=== PATIENT | male | born 1980 | race Two or more races ===

== ENCOUNTER 2020-05-16 11:43 | Emergency (ER) | payer MEDICAID ==
[~2020-05-16] VITALS: Ht 172.7 cm; Wt 65.0 kg
--- NOTE | 2020-05-16 12:26 | NUR ---
PT TO RM 2 FROM RM 38. BELONGINGS PLACED IN LOCKER PER AUNG STRONG. PT IN SECURE RM, SITTER IN VIEW OF PT. SW IN TO [facility] PT AT THIS TIME, UNABLE TO ASSESS D/T PT MAKING NONSENSICAL STATEMENTS AND FLIGHT OF IDEAS, THIS RN UNABLE TO ASSESS SI/HI D/T THIS. THAI HOLLIDAY CALLED TO [facility] PER ANNETTA. PT WITH NL
[2020-05-16 12:28] VITALS: BP 128/87
[2020-05-16 12:58] LABS: BASOPHILS % (AUTO) 0 % (0-1); EOSINOPHILS % (AUTO) 1 % (1-7); LYMPHOCYTES % (AUTO) 18 % (22-44); MEAN CORPUSCULAR HEMOGLOBIN 30.5 pg (27.5-34.5); MEAN CORPUSCULAR HGB CONC 34.2 g/dL (33.2-36.2); MEAN PLATELET VOLUME 7.8 fL (7.4-10.4); MONOCYTES % (AUTO) 6 % (2-9); NEUTROPHILS % (AUTO) 75 % (42-75); PLATELET COUNT 153 x10^3/uL (130-400); RED BLOOD COUNT 4.63 x10^6/uL (4.38-5.82); RED CELL DISTRIBUTION WIDTH 13.3 % (9.4-14.8)
[2020-05-16] MEDS ORDERED: LORazepam 2 MG/ML, 1ML ONE (12:59)
[2020-05-16 13:00] LABS: MD NO
[2020-05-16] MEDS ORDERED: PALIPERIDONE 6 MG TAB.ER.24 PO ONE (13:00)
[2020-05-16] MEDS ORDERED: LORazepam 2 MG/ML, 1ML IM PRN ×2 (13:00→13:30)
[2020-05-16] MEDS ORDERED: PALIPERIDONE PALMITATE 234 MG/1.5 ML IM ONE (13:00)
--- NOTE | 2020-05-16 13:04 | NUR ---
PT BECOMING AGITATED, RUNNING OUT OF HALLS, HEADED TO REGISTRATION DESK, "ILL WAIT HERE TO GET DISCHARGED" UNABLE TO ASSIST PT BACK TO RM, SECURITY CALLED, PT NOW WALKS BACK TO , PT PASING IN RM, PRN MEDICATION ORDER OBTAINED. PT MEDICATED PER AUG.
[2020-05-16 13:22] LABS: ALANINE AMINOTRANSFERASE 45 U/L (12-78); ALKALINE PHOSPHATASE 60 U/L (45-117); ANION GAP 5 mmol/L (5-15); BILIRUBIN,TOTAL 0.5 mg/dL (0.2-1.0); CALCIUM 8.2 mg/dL (8.5-10.1); CHLORIDE 104 mmol/L (98-107); CREATININE 0.85 mg/dL (0.7-1.3)
--- NOTE | 2020-05-16 13:27 | NUR ---
PHARMACY CALLED TO [facility], WILL SCALE TESTER SHORTLY. FLEXOGRAPHIC PRESS PLATE SETTER MADE AWARE OF PT AGGRESSION/BEHAVIORS. PT POSTURING TO STAFF, GRIPPING FISTS, GLARING.
[2020-05-16] MEDS ORDERED: PLEASE ENTER ALLERGIES MC SCH (13:30)
--- NOTE | 2020-05-16 14:37 | NUR ---
TASK RN NOTE: PT SITTING UP IN BED TALKING TO HIMSELF. NAD OR WOB NOTED AT THIS TIME. PT RECENTLY MEDICATED BY PRIMARY RN. SITTER OUTSIDE OF ROOM FOR DIRECT OBSERVATION AND Q15 MIN SAFETY CHECKS.
[2020-05-16 15:23] LABS: AMPHETAMINE SCREEN, URINE Negative (Negative); BARBITURATE SCREEN, URINE Negative (Negative); BENZODIAZEPINE SCREEN, URINE Negative (Negative); CANNABINOID SCREEN, URINE Negative (Negative); COCAINE SCREEN, URINE Negative (Negative); METHADONE SCREEN, URINE Negative (Negative); OPIATE SCREEN, URINE Negative (Negative)
--- NOTE | 2020-05-16 15:49 | NUR ---
PT FREQUENTLY GETTING OUT OF BED MESSING WITH GARAGE DOOR IN RM, REQUIRING FREQUENT REDIRECTION/INTERVENTIONS. SITTER REMAINS IN PLACE
--- NOTE | 2020-05-16 16:50 | NUR ---
COVID SWAB COMPLETED, PER DEBURRING AND TOOLING MACHINE OPERATOR PT TO TRANSFER TO [facility] ONCE RESULTED
--- NOTE | 2020-05-16 17:42 | NUR ---
REPORT TO RECIEVING RN. AWAITING TRANSPORT
[2020-05-17] MEDS ORDERED: OXCA300T3 PO (10:26)
[2020-05-17] MEDS ORDERED: PALI3TAB2 PO (10:26)
[2020-05-17] MEDS ORDERED: CLON-364 PO (10:26)
== END 2020-05-16 17:56 | disposition other institution (70) ==
LOC: ED 17:34
DX: F15.159 Other stimulant abuse with stimulant-induced psychotic disorder, unspecified (principal); Z20.828 Contact with and (suspected) exposure to other viral communicable diseases; F29 Unspecified psychosis not due to a substance or known physiological condition; F20.9 Schizophrenia, unspecified
CPT/HCPCS: 36415; 80053; 80307; 85025; 87635; 96372; 99284; J2060; J2426

== ENCOUNTER 2020-05-16 17:25 | Inpatient (IN) | payer MEDICAID ==
[~2020-05-16] VITALS: Ht 198.1 cm; Wt 77.0 kg
[2020-05-16] MEDS ORDERED: BISACODYL 10 MG SUPP PR PRN (17:30)
[2020-05-16] MEDS ORDERED: ONDANSETRON ODT 4 MG PO PRN (17:30)
[2020-05-16] MEDS ORDERED: DOCUSATE 100 MG CAPSULE PO PRN (17:30)
[2020-05-16] MEDS ORDERED: POLYETHYLENE GLYCOL 17 GM PACKET PO PRN (17:30)
[2020-05-16] MEDS ORDERED: ACETAMINOPHEN 325 MG TABLET PO PRN (17:30)
[2020-05-16 18:28] VITALS: BP 143/104
[2020-05-16] MEDS ORDERED: PLEASE ENTER ALLERGIES MC SCH (18:30)
[2020-05-16] MEDS ORDERED: PLEASE ENTER HEIGHT AND WEIGHT MC SCH (18:30)
[2020-05-16 20:37] VITALS: BP 115/78
[2020-05-16] MEDS: OLANZAPINE 5 MG TABLET PO PRN (22:42)
[2020-05-16 22:53] VITALS: BP 143/104
[2020-05-17] MEDS: LORazepam 1MG TABLET PO PRN (00:06)
[2020-05-17 07:41] VITALS: BP 133/97
[2020-05-17 08:24] LABS: CHOL/HDL RATIO 3.5; LDL/HDL RATIO 2.2 (0.5-3.0)
[2020-05-17] MEDS: OLANZAPINE 5 MG TABLET PO PRN ×2 (09:05→20:22)
[2020-05-17] MEDS ORDERED: CLON-364 PO (10:26)
[2020-05-17] MEDS ORDERED: OXCA300T3 PO (10:26)
[2020-05-17] MEDS ORDERED: PALI3TAB2 PO (10:26)
[2020-05-17] MEDS ORDERED: NICOTINE 14MG/24 HR PATCH.TD24 ONE (10:31)
[2020-05-17] MEDS: NICOTINE 14MG/24 HR PATCH.TD24 TD SCH (10:32)
[2020-05-17 19:35] VITALS: BP 137/93
[2020-05-17] MEDS: CARBAMAZEPINE XR 200 MG TABLET PO SCH (20:21)
[2020-05-18 07:16] VITALS: BP 114/79
[2020-05-18] MEDS: PALIPERIDONE 6 MG TAB.ER.24 PO SCH (08:56)
[2020-05-18] MEDS: NICOTINE 14MG/24 HR PATCH.TD24 TD SCH (08:56)
[2020-05-18] MEDS: CARBAMAZEPINE XR 200 MG TABLET PO SCH ×2 (08:58→21:17)
[2020-05-18] MEDS ORDERED: LISINOPRIL 10 MG TABLET PO SCH (09:00)
[2020-05-18 19:30] VITALS: BP 119/80
[2020-05-18] MEDS: OLANZAPINE 5 MG TABLET PO PRN (21:17)
[2020-05-19 07:12] VITALS: BP 122/82
[2020-05-19] MEDS: PALIPERIDONE 6 MG TAB.ER.24 PO SCH (08:22)
[2020-05-19] MEDS: CARBAMAZEPINE XR 200 MG TABLET PO SCH ×2 (08:22→21:06)
[2020-05-19] MEDS: LISINOPRIL 5 MG TABLET PO SCH (08:53)
[2020-05-19] MEDS: NICOTINE 14MG/24 HR PATCH.TD24 TD SCH (11:52)
[2020-05-19 20:07] VITALS: BP 103/71
[2020-05-19] MEDS: OLANZAPINE 5 MG TABLET PO PRN (21:02)
[2020-05-20 07:23] VITALS: BP 100/62
[2020-05-20] MEDS: NICOTINE 14MG/24 HR PATCH.TD24 TD SCH (08:36)
[2020-05-20] MEDS: LISINOPRIL 5 MG TABLET PO SCH (08:36)
[2020-05-20] MEDS: PALIPERIDONE 6 MG TAB.ER.24 PO SCH (08:36)
[2020-05-20] MEDS: CARBAMAZEPINE XR 200 MG TABLET PO SCH ×2 (08:36→20:52)
[2020-05-20 08:47] LABS: MICROSCOPIC NOT IND
[2020-05-20] MEDS: OLANZAPINE 5 MG TABLET PO PRN (20:52)
[2020-05-20 21:00] VITALS: BP 157/98
[2020-05-20 21:03] VITALS: BP 111/77
[2020-05-21 07:29] VITALS: BP 127/85
[2020-05-21] MEDS: CARBAMAZEPINE XR 200 MG TABLET PO SCH ×2 (09:00→20:26)
[2020-05-21] MEDS: PALIPERIDONE 6 MG TAB.ER.24 PO SCH (09:00)
[2020-05-21] MEDS: LISINOPRIL 5 MG TABLET PO SCH (09:00)
[2020-05-21] MEDS: NICOTINE 14MG/24 HR PATCH.TD24 TD SCH (09:15)
[2020-05-21] MEDS: ZINC SULFATE 220 MG CAPSULE PO SCH (18:05)
[2020-05-21 19:08] VITALS: BP 103/68
[2020-05-22 07:11] VITALS: BP 120/88
[2020-05-22] MEDS: ZINC SULFATE 220 MG CAPSULE PO SCH (08:24)
[2020-05-22] MEDS: CHOLECALCIFEROL 1,000 UNIT TABLET PO SCH (08:25)
[2020-05-22] MEDS: LISINOPRIL 5 MG TABLET PO SCH (08:25)
[2020-05-22] MEDS: CARBAMAZEPINE XR 200 MG TABLET PO SCH (08:28)
[2020-05-22] MEDS: PALIPERIDONE 6 MG TAB.ER.24 PO SCH (08:28)
[2020-05-22] MEDS: NICOTINE 14MG/24 HR PATCH.TD24 TD SCH (10:55)
[2020-05-22] MEDS: FLUOXETINE 10 MG CAP PO SCH (13:11)
[2020-05-22] MEDS: OXCARBAZEPINE 150 MG TABLET PO SCH ×2 (13:12→21:11)
[2020-05-22 19:14] VITALS: BP 106/65
[2020-05-23 07:04] VITALS: BP 116/76
[2020-05-23] MEDS: FLUOXETINE 10 MG CAP PO SCH (08:04)
[2020-05-23] MEDS: ZINC SULFATE 220 MG CAPSULE PO SCH (08:04)
[2020-05-23] MEDS: CHOLECALCIFEROL 1,000 UNIT TABLET PO SCH (08:04)
[2020-05-23] MEDS: LISINOPRIL 5 MG TABLET PO SCH (08:04)
[2020-05-23] MEDS: PALIPERIDONE 6 MG TAB.ER.24 PO SCH (08:04)
[2020-05-23] MEDS: OXCARBAZEPINE 150 MG TABLET PO SCH ×2 (08:09→20:52)
[2020-05-23] MEDS: NICOTINE 14MG/24 HR PATCH.TD24 TD SCH (15:11)
[2020-05-23] MEDS: OLANZAPINE 5 MG TABLET PO PRN (15:38)
[2020-05-23 19:09] VITALS: BP 116/80
[2020-05-24 07:17] VITALS: BP 111/70
[2020-05-24] MEDS: PALIPERIDONE 6 MG TAB.ER.24 PO SCH (08:45)
[2020-05-24] MEDS: LISINOPRIL 5 MG TABLET PO SCH (08:46)
[2020-05-24] MEDS: OXCARBAZEPINE 150 MG TABLET PO SCH ×2 (08:46→20:20)
[2020-05-24] MEDS: FLUOXETINE 10 MG CAP PO SCH (08:46)
[2020-05-24] MEDS: CHOLECALCIFEROL 1,000 UNIT TABLET PO SCH (08:47)
[2020-05-24] MEDS: ZINC SULFATE 220 MG CAPSULE PO SCH (08:47)
[2020-05-24] MEDS: NICOTINE 14MG/24 HR PATCH.TD24 TD SCH ×2 (08:50→12:46)
[2020-05-24] MEDS: OLANZAPINE 5 MG TABLET PO PRN (15:53)
[2020-05-24 19:25] VITALS: BP 102/67
[2020-05-25 07:00] VITALS: BP 106/72
[2020-05-25] MEDS: LISINOPRIL 5 MG TABLET PO SCH (08:40)
[2020-05-25] MEDS: PALIPERIDONE 6 MG TAB.ER.24 PO SCH (08:40)
[2020-05-25] MEDS: CHOLECALCIFEROL 1,000 UNIT TABLET PO SCH (08:41)
[2020-05-25] MEDS: OXCARBAZEPINE 150 MG TABLET PO SCH ×2 (08:41→20:41)
[2020-05-25] MEDS: FLUOXETINE 10 MG CAP PO SCH (08:41)
[2020-05-25] MEDS: ZINC SULFATE 220 MG CAPSULE PO SCH (08:41)
[2020-05-25] MEDS: NICOTINE 14MG/24 HR PATCH.TD24 TD SCH ×2 (08:44→10:18)
[2020-05-25 19:42] VITALS: BP 116/82
[2020-05-25] MEDS: OLANZAPINE 5 MG TABLET PO PRN (20:53)
[2020-05-26 07:27] VITALS: BP 100/65
[2020-05-26] MEDS: PALIPERIDONE 6 MG TAB.ER.24 PO SCH (08:20)
[2020-05-26] MEDS: FLUOXETINE 10 MG CAP PO SCH (08:20)
[2020-05-26] MEDS: LISINOPRIL 5 MG TABLET PO SCH (08:20)
[2020-05-26] MEDS: CHOLECALCIFEROL 1,000 UNIT TABLET PO SCH (08:21)
[2020-05-26] MEDS: OXCARBAZEPINE 150 MG TABLET PO SCH ×2 (08:21→20:36)
[2020-05-26] MEDS: NICOTINE 14MG/24 HR PATCH.TD24 TD SCH (08:46)
[2020-05-26] MEDS: ZINC SULFATE 220 MG CAPSULE PO SCH (08:47)
[2020-05-26] MEDS ORDERED: ZINC220C7 PO (11:36)
[2020-05-26] MEDS ORDERED: NICO-486 TD (11:36)
[2020-05-26] MEDS ORDERED: PALI6TAB5 PO (11:36)
[2020-05-26] MEDS ORDERED: CHOL10003 PO (11:36)
[2020-05-26] MEDS ORDERED: LISI5TAB7 PO (11:36)
[2020-05-26] MEDS ORDERED: FLUO10CA15 PO (11:36)
[2020-05-26] MEDS: LORazepam 1MG TABLET PO PRN ×2 (14:23→20:37)
[2020-05-26 20:00] VITALS: BP 130/90
[2020-05-26] MEDS: OLANZAPINE 5 MG TABLET PO PRN (20:36)
[2020-05-27 07:27] VITALS: BP 104/67
[2020-05-27] MEDS: NICOTINE 14MG/24 HR PATCH.TD24 TD SCH (08:40)
[2020-05-27] MEDS: ZINC SULFATE 220 MG CAPSULE PO SCH (08:40)
[2020-05-27] MEDS: OXCARBAZEPINE 150 MG TABLET PO SCH (08:41)
[2020-05-27] MEDS: PALIPERIDONE 6 MG TAB.ER.24 PO SCH (08:41)
[2020-05-27] MEDS: LISINOPRIL 5 MG TABLET PO SCH (08:41)
[2020-05-27] MEDS: CHOLECALCIFEROL 1,000 UNIT TABLET PO SCH (08:41)
[2020-05-27] MEDS: FLUOXETINE 10 MG CAP PO SCH (08:42)
== END 2020-05-27 11:23 | disposition home or self-care (01) | DRG 750 ==
LOC: 3E 17:25 → UNDOADMIN 17:25 → 3E 17:57
PROVIDERS: ADMIT Psychiatry & Neurology Psychosomatic Medicine; ATTEND Psychiatry & Neurology Psychosomatic Medicine
DX: F20.0 Paranoid schizophrenia (principal); Z20.828 Contact with and (suspected) exposure to other viral communicable diseases; F33.0 Major depressive disorder, recurrent, mild; F41.1 Generalized anxiety disorder; I10 Essential (primary) hypertension; J06.9 Acute upper respiratory infection, unspecified; F17.210 Nicotine dependence, cigarettes, uncomplicated; Z79.899 Other long term (current) drug therapy; Z79.891 Long term (current) use of opiate analgesic; Z79.01 Long term (current) use of anticoagulants; Z82.3 Family history of stroke; Z81.8 Family history of other mental and behavioral disorders
CPT/HCPCS: 36415; 71045; 80061; 81003; 93005; U0003